=== PATIENT | female | born 1930 | race Caucasian/White ===

== ENCOUNTER → 2016-12-06 | Outpatient (CLI) | payer MEDICARE, OTHER ==
[~2016-12-06] MED LIST: BYSTOLIC2.5 MG; COUMADIN 22.5 MG/TAB PO; COUMADIN 5MG5 MG/TAB PO; COUMADIN4 MG PO; LASIX 20MG TABL20 MG PO
== END ==
LOC: COL.RAD 12:27
DX: G93.89 Other specified disorders of brain (principal)
CPT/HCPCS: A9585